=== PATIENT | female | born 1980 | race Caucasian/White ===

== ENCOUNTER 2016-08-10 20:40 | Emergency (ER) | payer MEDICAID ==
[~2016-08-10] VITALS: Ht 152.4 cm; Wt 41.8 kg
[~2016-08-10 20:40] MED LIST: ALPR.25 PO; CEPH500C3 PO; CREON12 PO
[2016-08-10 20:42] VITALS: BP 137/66; PULSE 89; RESP 16; TEMP 97.9; O2SAT 98
== END 2016-08-10 23:55 | disposition left against medical advice (07) ==
LOC: NED 20:40
DX: Z53.21 Procedure and treatment not carried out due to patient leaving prior to being seen by health care provider (principal)
CPT/HCPCS: 99281

== ENCOUNTER 2017-05-19 10:44 | Emergency (ER) | payer MEDICAID ==
[~2017-05-19] VITALS: Ht 154.9 cm; Wt 42.0 kg
[2017-05-19 10:45] VITALS: BP 155/70; PULSE 55; RESP 16; TEMP 99.3; O2SAT 99
[2017-05-19] MEDS ORDERED: CREON12 PO (11:37)
[2017-05-19] MEDS ORDERED: ALPR.25 PO (11:37)
[2017-05-19] MEDS ORDERED: SODIUM CHLOR 0.9% 1000 ML INJ 1,000 ML IV SCH (11:52)
--- NOTE | 2017-05-19 11:56 | PD ---
HPI Chief Complaint: GI Complaint Time Seen by Provider: 11:36 Travel History International Travel<30 days: No Contact w/Intl Traveler<30days: No Traveled to known affect area: No History of Present Illness HPI 36-year-old female with PMH of hepatitis, pancreatitis, endometriosis presents to the ED for evaluation of 2.5 week history of 8/10 right lower quadrant abdominal pain. Sudden onset, resolves spontaneously. Lasts variable amounts of time. Worsened by eating. No alleviating factors reported. Patient endorses accompanying nausea and one or 2 episodes of NBNB vomiting. Endorses chronic loose stools secondary to cholecystectomy. Denies melena, hematochezia. She denies fevers, chills. She endorses increased urinary urgency. She denies dysuria. She endorses occasional vaginal discharge, which she states is her normal. She had an upper endoscopy last year which was "normal." LMP 04/26/17. PCP is in [place]. PFSH Past Medical History Anxiety: Yes Diminished Hearing: No Hepatitis: Yes (HEPATITIS C) Pancreatitis: Yes Tetanus Vaccination: > 5 Years Influenza Vaccination: No ?: Not LMP: 04/26/17 Past Surgical History Cholecystectomy: Yes Tonsillectomy: Yes Other Surgery: Yes (LIVER BIOPSY) Social History Alcohol Use: No Tobacco Use: Yes (E. CIG, BLACK & MILD) Substance Use: Yes (MARIJUANA) Allergies-Medications (Allergen,Severity, Reaction): Coded Allergies: No Known Allergies (Unverified Adverse Reaction, Unknown, 05/19/17) Reported Meds & Prescriptions Reported Meds & Active Scripts Active Reported Creon (Amylase/Lipase/Protease) 12,000-38,000-60,000 Units Cap 1 Cap PO TIDPC Xanax (Alprazolam) 0.25 Mg Tab 0.25 Mg PO Q8H PRN Review of Systems Except as stated in HPI: all other systems reviewed are Neg Physical Exam Narrative GENERAL: Well-nourished, well-developed petite white female in no acute distress. SKIN: Focused skin assessment warm/dry. HEAD: Normocephalic. EYES: No scleral icterus. No injection or drainage. NECK: Supple, trachea midline. No JVD or lymphadenopathy. CARDIOVASCULAR: Regular rate and rhythm without murmurs, gallops, or rubs. RESPIRATORY: Breath sounds clear and equal bilaterally. No accessory muscle use. GASTROINTESTINAL: Abdomen soft, nondistended. Mildly, diffusely tender. No suprapubic tenderness. Active bowel sounds. MUSCULOSKELETAL: No cyanosis, or edema. BACK: Nontender without obvious deformity. No CVA tenderness. Data Data Last Documented VS Vital Signs Date Time Temp Pulse Resp B/P (MAP) Pulse Ox O2 Delivery O2 Flow Rate FiO2 05/19/17 15:40 05/19/17 15:00 52 19 100 Room Air 05/19/17 10:45 99.3 Orders Orders Complete Blood Count With Diff (05/19/17 11:52) Comprehensive Metabolic Panel (05/19/17 11:52) Lipase (05/19/17 11:52) Lactic Acid (05/19/17 11:52) Prothrombin Time / Inr (Pt) (05/19/17 11:52) Act Partial Throm Time (Ptt) (05/19/17 11:52) Urinalysis - C+S If Indicated (05/19/17 11:52) Ct Abd/Pel W Iv Contrast(Rout) (05/19/17 11:52) Iv Access Insert/Monitor (05/19/17 11:52) Ecg Monitoring (05/19/17 11:52) Oximetry (05/19/17 11:52) NPO (05/19/17 11:52) Ondansetron Inj (Zofran Inj) (05/19/17 12:00) Sodium Chlor 0.9% 1000 Ml Inj (Ns 1000 M (05/19/17 11:52) Sodium Chloride 0.9% Flush (Ns Flush) (05/19/17 12:00) Morphine Inj (Morphine Inj) (05/19/17 12:00) Ed Urine Pregnancytest Poc (05/19/17 11:52) Oral Contrast - Adult (05/19/17 11:58) Diatrizoate Liq ( Gastrojulieth Liq) (05/19/17 12:33) Iohexol 350 Inj (Omnipaque 350 Inj) (05/19/17 13:58) Ed Discharge Order (05/19/17 15:02) Labs Laboratory Tests Test 05/19/17 12:15 05/19/17 14:10 White Blood Count 4.0 TH/MM3 Red Blood Count 4.57 MIL/MM3 Hemoglobin 13.9 GM/DL Hematocrit 40.1 % Mean Corpuscular Volume 87.8 FL Mean Corpuscular Hemoglobin 30.4 PG Mean Corpuscular Hemoglobin Concent 34.6 % Red Cell Distribution Width 12.4 % Platelet Count 165 TH/MM3 Mean Platelet Volume 8.9 FL Neutrophils (%) (Auto) 42.1 % Lymphocytes (%) (Auto) 46.7 % Monocytes (%) (Auto) 9.6 % Eosinophils (%) (Auto) 1.0 % Basophils (%) (Auto) 0.6 % Neutrophils # (Auto) 1.7 TH/MM3 Lymphocytes # (Auto) 1.9 TH/MM3 Monocytes # (Auto) 0.4 TH/MM3 Eosinophils # (Auto) 0.0 TH/MM3 Basophils # (Auto) 0.0 TH/MM3 CBC Comment DIFF FINAL Differential Comment Prothrombin Time 11.1 SEC Prothromb Time International Ratio 1.0 RATIO Activated Partial Thromboplast Time 26.6 SEC Blood Urea Nitrogen 10 MG/DL Creatinine 0.79 MG/DL Random Glucose 75 MG/DL Total Protein 8.1 GM/DL Albumin 4.4 GM/DL Calcium Level 8.7 MG/DL Alkaline Phosphatase 36 U/L Aspartate Amino Transf (AST/SGOT) 35 U/L Alanine Aminotransferase (ALT/SGPT) 67 U/L Total Bilirubin 0.7 MG/DL Sodium Level 139 MEQ/L Potassium Level 4.0 MEQ/L Chloride Level 106 MEQ/L Carbon Dioxide Level 26.8 MEQ/L Anion Gap 6 MEQ/L Estimat Glomerular Filtration Rate 82 ML/MIN Lactic Acid Level 0.5 mmol/L Lipase 91 U/L Urine Color YELLOW Urine Turbidity CLEAR Urine pH 6.5 Urine Specific [place] 1.007 Urine Protein NEG mg/dL Urine Glucose (UA) NEG mg/dL Urine Ketones NEG mg/dL Urine Occult Blood NEG Urine Nitrite NEG Urine Bilirubin NEG Urine Urobilinogen LESS THAN 2.0 MG/DL Urine Leukocyte Esterase SMALL Urine RBC LESS THAN 1 /hpf Urine WBC 1 /hpf Urine Squamous Epithelial Cells <1 /hpf Microscopic Urinalysis Comment CULT NOT INDICATED MDM Medical Decision Making Medical Screen Exam Complete: Yes Emergency Medical Condition: Yes Differential Diagnosis UTI versus appendicitis versus biliary colic versus endometriosis versus other Narrative Course 36-year-old female with PMH of hepatitis, pancreatitis, endometriosis presents to the ED for evaluation of 2.5 week history of 8/10 right lower quadrant abdominal pain. Sudden onset, resolves spontaneously. Lasts variable amounts of time. Worsened by eating. No alleviating factors reported. Patient endorses accompanying nausea and one or 2 episodes of NBNB vomiting. Endorses chronic loose stools secondary to cholecystectomy. Denies melena, hematochezia. She denies fevers, chills. She endorses increased urinary urgency. She denies dysuria. She endorses occasional vaginal discharge, which she states is her normal. She had an upper endoscopy last year which was "normal." LMP 04/26/17. PCP is in [place]. CBC: WBC 4.0. Hemoglobin 13.9. Coags: INR 1.0. CMP: AST 67. Lactic acid 0.5. Lipase 91. UA: No culture indicated UPT: Negative CT abdomen and pelvis: 1. Mild wall thickening involving small segment of small bowel in the left mid abdomen. No inflammatory changes or obstruction. 2. Mild intrahepatic biliary duct dilatation likely reservoir effect from previous cholecystectomy. 3. Nonspecific splenic low-density likely benign. 4. Mild distention of the collecting system bilaterally with distention of the urinary bladder. I reviewed the patient's record and it seems she has history of chronic abdominal pain. I don't see anything acute at this time. She is safe for outpatient follow-up. She should see her GLUE MAKER as well as her PCP. She stable and discharged home. Diagnosis Primary Impression: Chronic abdominal pain Referrals: Night Assistant Primary Care Physician Patient Instructions: Chronic Abdominal Pain (ED), Diet for Stomach Ulcers and Gastritis (ED), General Instructions Additional Instructions: Rest, hydrate. Resume normal, gentle activities as tolerated. Eat a bland diet for the next few days and gradually reintroduce new foods. Follow-up with the primary care provider and building custodian for further evaluation. Return to the ED for any urgent or emergent medical condition. Disposition: DISCHARGE HOME Condition: Stable Alejandra Lozoya May 19, 2017 11:56
[2017-05-19] MEDS ORDERED: ONDANSETRON HCL 4 MG/2 ML VIAL IVP ONE (12:00)
[2017-05-19] MEDS ORDERED: MORPHINE SULFATE 4 MG/ML INJ IV PUSH ONE (12:00)
[2017-05-19] MEDS ORDERED: SODIUM CHLORIDE 0.9% FLUSH 10 ML FLUSH IV FLUSH PRN (12:00)
[2017-05-19 12:14] VITALS: O2SAT 98
[2017-05-19] MEDS ORDERED: DIATRIZOATE MEGLUM/DIATRIZOATE SOD 9 ML CUP ONE (12:33)
[2017-05-19 12:46] LABS: AUTOMATED NEUTROPHIL # 1.7 TH/MM3 (1.8-7.7); BASOPHIL % 0.6 % (0.0-2.0); HEMATOCRIT 40.1 % (35.0-46.0); HEMO FLAGS DIFF FINAL; LYMPH % 46.7 % (9.0-44.0); LYMPHOCYTE # 1.9 TH/MM3 (1.0-4.8); MEAN CELL VOLUME 87.8 FL (80.0-100.0); MEAN CORPUSCULAR HEMOGLOBIN 30.4 PG (27.0-34.0); MEAN CORPUSCULAR HGB CONC 34.6 % (32.0-36.0); MONO % 9.6 % (0.0-8.0); NEUT % 42.1 % (16.0-70.0); PLATELET COUNT 165 TH/MM3 (150-450); RED BLOOD COUNT 4.57 MIL/MM3 (4.00-5.30); RED CELL DISTRIBUTION WIDTH 12.4 % (11.6-17.2)
[2017-05-19 12:56] LABS: APTT (PATIENT) 26.6 SEC (24.3-30.1); PROTHROMBIN TIME - PATIENT 11.1 SEC (9.8-11.6)
[2017-05-19 13:00] VITALS: BP 113/60; PULSE 54; RESP 18; O2SAT 98
[2017-05-19 13:02] LABS: ALT (GPT) 67 U/L (10-53); ANION GAP 6 MEQ/L (5-15); AST (GOT) 35 U/L (15-37); BICARBONATE 26.8 MEQ/L (21.0-32.0); BLOOD UREA NITROGEN 10 MG/DL (7-18); CHLORIDE 106 MEQ/L (98-107); GLOMERULAR FILTRATION RATE 82 ML/MIN (>89); SODIUM (NA) 139 MEQ/L (136-145)
[2017-05-19 13:05] LABS: ALKALINE PHOSPHATASE 36 U/L (45-117); TOTAL BILIRUBIN ADULT 0.7 MG/DL (0.2-1.0)
--- NOTE | 2017-05-19 13:52 | PD ---
Data Data Last Documented VS Vital Signs Date Time Temp Pulse Resp B/P (MAP) Pulse Ox O2 Delivery O2 Flow Rate FiO2 05/19/17 12:14 98 Room Air 05/19/17 10:45 99.3 55 16 Orders Orders Complete Blood Count With Diff (05/19/17 11:52) Comprehensive Metabolic Panel (05/19/17 11:52) Lipase (05/19/17 11:52) Lactic Acid (05/19/17 11:52) Prothrombin Time / Inr (Pt) (05/19/17 11:52) Act Partial Throm Time (Ptt) (05/19/17 11:52) Urinalysis - C+S If Indicated (05/19/17 11:52) Ct Abd/Pel W Iv Contrast(Rout) (05/19/17 11:52) Iv Access Insert/Monitor (05/19/17 11:52) Ecg Monitoring (05/19/17 11:52) Oximetry (05/19/17 11:52) NPO (05/19/17 11:52) Ondansetron Inj (Zofran Inj) (05/19/17 12:00) Sodium Chlor 0.9% 1000 Ml Inj (Ns 1000 M (05/19/17 11:52) Sodium Chloride 0.9% Flush (Ns Flush) (05/19/17 12:00) Morphine Inj (Morphine Inj) (05/19/17 12:00) Ed Urine Pregnancytest Poc (05/19/17 11:52) Oral Contrast - Adult (05/19/17 11:58) Diatrizoate Liq ( Gastroview Liq) (05/19/17 12:33) Labs Laboratory Tests Test 05/19/17 12:15 White Blood Count 4.0 TH/MM3 Red Blood Count 4.57 MIL/MM3 Hemoglobin 13.9 GM/DL Hematocrit 40.1 % Mean Corpuscular Volume 87.8 FL Mean Corpuscular Hemoglobin 30.4 PG Mean Corpuscular Hemoglobin Concent 34.6 % Red Cell Distribution Width 12.4 % Platelet Count 165 TH/MM3 Mean Platelet Volume 8.9 FL Neutrophils (%) (Auto) 42.1 % Lymphocytes (%) (Auto) 46.7 % Monocytes (%) (Auto) 9.6 % Eosinophils (%) (Auto) 1.0 % Basophils (%) (Auto) 0.6 % Neutrophils # (Auto) 1.7 TH/MM3 Lymphocytes # (Auto) 1.9 TH/MM3 Monocytes # (Auto) 0.4 TH/MM3 Eosinophils # (Auto) 0.0 TH/MM3 Basophils # (Auto) 0.0 TH/MM3 CBC Comment DIFF FINAL Differential Comment Prothrombin Time 11.1 SEC Prothromb Time International Ratio 1.0 RATIO Activated Partial Thromboplast Time 26.6 SEC Blood Urea Nitrogen 10 MG/DL Creatinine 0.79 MG/DL Random Glucose 75 MG/DL Total Protein 8.1 GM/DL Albumin 4.4 GM/DL Calcium Level 8.7 MG/DL Alkaline Phosphatase 36 U/L Aspartate Amino Transf (AST/SGOT) 35 U/L Alanine Aminotransferase (ALT/SGPT) 67 U/L Total Bilirubin 0.7 MG/DL Sodium Level 139 MEQ/L Potassium Level 4.0 MEQ/L Chloride Level 106 MEQ/L Carbon Dioxide Level 26.8 MEQ/L Anion Gap 6 MEQ/L Estimat Glomerular Filtration Rate 82 ML/MIN Lactic Acid Level 0.5 mmol/L Lipase 91 U/L MDM Supervised Visit with BATOOL: Yes Narrative Course The history, exam, and medical decision-making in the associated mid-level provider note were completed with my assistance. I reviewed and agree with the findings presented. I attest that I had a [id number] encounter with the patient on the same day, and personally performed and documented my assessment and findings in the medical record. *My assessment and Findings: 36-year-old woman with chronic right upper quadrant abdominal pain, says post cholecystectomy, here with because the pain is been radiating more to her mid abdomen and lower abdomen for the past 2-1/2 weeks. She looks well. Benign exam. We'll check imaging and labs. Outpatient follow-up. Matheus Waters MD May 19, 2017 13:52
[2017-05-19] MEDS ORDERED: IOHEXOL 350 MG/ML 10 ML VIAL (for RAD DIAG) IVCONTRAST ONE (13:58)
--- NOTE | 2017-05-19 14:17 | RADRPT ---
EXAM DATE/TIME: 05/19/2017 13:53 [facility] COMPARISON: No previous studies available for comparison. INDICATIONS : Abdominal pain, nausea, diarrhea. IV CONTRAST: 96 cc Omnipaque 350 (iohexol) IV ORAL CONTRAST: Prescribed oral contrast ingested. RADIATION DOSE: 4.51 CTDIvol (mGy) MEDICAL HISTORY : Pancreatitis. SURGICAL HISTORY : Cholecystectomy. ENCOUNTER: Initial ACUITY: 3 weeks PAIN SCALE: 8/10 LOCATION: middle abdomen. TECHNIQUE: Volumetric scanning of the abdomen and pelvis was performed. Using automated exposure control and ad justment of the mA and/or kV according to patient size, radiation dose was kept as low as reasonably achievable to obtain optimal diagnostic quality images. DICOM format image data is available electro nically for review and comparison. FINDINGS: LOWER LUNGS: The visualized lower lungs are clear. LIVER: Homogeneous density without lesion. There is mild dilation of the biliary tree. Cholecystectomy clip s. SPLEEN: Normal size was small low-density. PANCREAS: Within normal limits. KIDNEYS: Normal in size and shape. There is no mass, stone or hydronephrosis. Mild prominence of the collecti ng system bilaterally. ADRENAL GLANDS: Within normal limits. VASCULAR: There is no aortic aneurysm. BOWEL/MESENTERY: Mild wall thickening involving small segment of small bowel loop in the left mid abdomen. No bowel ob struction.. There is no free intraperitoneal air or fluid. ABDOMINAL WALL: Within normal limits. RETROPERITONEUM: There is no lymphadenopathy. BLADDER: Distention of the bladder. No wall thickening or mass. REPRODUCTIVE: Within normal limits. INGUINAL: There is no lymphadenopathy or hernia. MUSCULOSKELETAL: Within normal limits for patient age. CONCLUSION: 1. Mild wall thickening involving small segment of small bowel in the left mid abdomen. No inflammato ry changes or obstruction. 2. Mild intrahepatic biliary duct dilatation likely reservoir effect from previous cholecystectomy. 3. Nonspecific splenic low-density likely benign. 4. Mild distention of the collecting system bilaterally with distention of the urinary bladder. Franko Tipton MD on May 19, 2017 at 14:12 Board Certified Radiologist. This report was verified electronically.
[2017-05-19 14:47] LABS: BLOOD, URINE NEG (NEG); GLUCOSE,URINE NEG (NEG); KETONE, URINE NEG (NEG); NITRITE,URINE NEG (NEG); PH, URINE 6.5 (5.0-8.5); SQUAMOUS EPITHELIAL CELL URINE <1 /hpf (0-5); URINE COLOR YELLOW (YELLW/STRAW)
[2017-05-19 14:49] LABS: COMMENT (UR) CULT NOT INDICATED; CULTURE IF INDICATED CULT NOT INDICATED
[2017-05-19 15:00] VITALS: BP 130/62; PULSE 52; RESP 19; O2SAT 100
== END 2017-05-19 15:41 | disposition home or self-care (01) ==
LOC: NEPC 10:44
DX: R10.31 Right lower quadrant pain (principal); G89.29 Other chronic pain; K75.9 Inflammatory liver disease, unspecified; F41.9 Anxiety disorder, unspecified; F17.290 Nicotine dependence, other tobacco product, uncomplicated; Z86.19 Personal history of other infectious and parasitic diseases; Z87.19 Personal history of other diseases of the digestive system; Z79.899 Other long term (current) drug therapy
CPT/HCPCS: 74177; 80053; 81001; 83605; 83690; 84703; 85025; 85610; 85730; 96361; 96374; 96375; 99285; J2270; J2405; J7030; Q9963; Q9967